=== PATIENT | male | born 1960 | race Caucasian/White ===

== ENCOUNTER 2017-09-23 13:16 | Emergency (ER) | payer MEDICARE ==
[2017-09-23 14:16] VITALS: BP 123/77
--- NOTE | 2017-09-23 15:32 | UC ---
Respiratory Complaint HPI - HPI Summary HPI Summary: 57 MALE WITH NASAL CONGESTION AND SINUS PAIN X 1 WEEK HE HAS COPD AND REQUIRES HOME O2 NO F/C NO INCREASE IN HIS BASE LINE SOB NO REVELES OR MYALGIAS - History of Current Complaint Chief Complaint: UCGeneralIllness Stated Complaint: RESPIRATORY/SINUS Time Seen by Provider: 09/23/17 15:23 Hx Obtained From: Patient Timing: Constant Severity Initially: Mild Severity Currently: Moderate Pain Intensity: 4 Pain Scale Used: 0-10 Numeric Character: Cough: Nonproductive Aggravating Factors: Nothing Associated Signs And Symptoms: Positive: Wheezing - CHRONIC COMPLAINT, Nasal Congestion, Sinus Discomfort. Negative: Dyspnea, Fever, Chills, Pleuritic Chest Pain - Allergies/Home Medications Allergies/Adverse Reactions: Allergies Allergy/AdvReac Type Severity Reaction Status Date / Time Bacitracin [From Neosporin] Allergy Intermediate Rash Verified 09/23/17 14:16 Neomycin [From Neosporin] Allergy Intermediate Rash Verified 09/23/17 14:16 Polymyxin B [From Neosporin] Allergy Intermediate Rash Verified 09/23/17 14:16 Sulfa Antibiotics Allergy Intermediate Rash Verified 09/23/17 14:16 PMH/Surg Hx/FS Hx/Imm Hx Previously Healthy: Yes Respiratory History: COPD, Bronchitis - Surgical History Surgical History: Yes Surgery Procedure, Year, and Place: 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 , APPENDECTOMY - Social History Alcohol Use: Occasionally Substance Use Type: None Smoking Status (MU): Heavy Every Day Tobacco Smoker Type: Cigarettes Amount Used/How Often: 2 PPD Have You Smoked in the Last Year: Yes When Did the Patient Quit Smoking/Using Tobacco: 3 DAYS AGO - Immunization History Most Recent Influenza Vaccination: 1 week ago Review of Systems Constitutional: Negative Skin: Negative Eyes: Negative ENT: Nasal Discharge, Sinus Congestion, Sinus Pain/Tenderness Respiratory: Cough Cardiovascular: Negative Gastrointestinal: Negative Genitourinary: Negative Motor: Negative Neurovascular: Negative Musculoskeletal: Negative Neurological: Negative Psychological: Negative Is Patient Immunocompromised?: No All Other Systems Reviewed And Are Negative: Yes Physical Exam Triage Information Reviewed: Yes Appearance: Well-Appearing, No Pain Distress, Well-Nourished Vital Signs: Initial Vital Signs Temp 98.7 F 09/23/17 14:09 Pulse 104 09/23/17 14:09 Resp 18 09/23/17 14:09 BP 123/77 09/23/17 14:09 Pulse Ox 93 09/23/17 14:09 Vital Signs Reviewed: Yes Eyes: Positive: Conjunctiva Clear ENT: Positive: Hearing grossly normal, Nasal congestion, Nasal drainage, Sinus tenderness. Negative: Tonsillar swelling, Tonsillar exudate, Trismus, Muffled voice Neck: Positive: Supple, Nontender Respiratory: Positive: No respiratory distress, No accessory muscle use, Wheezing Cardiovascular: Positive: RRR, No Murmur Musculoskeletal: Positive: ROM Intact, No Edema Neurological: Positive: Alert Psychological Exam: Normal Skin Exam: Normal UC Diagnostic Evaluation - Laboratory O2 Sat by Pulse Oximetry: 93 - HIS BASELINE Respiratory Course/Dx - Differential Dx/Diagnosis Provider Diagnoses: ACUTE SINUSITIS Discharge - Discharge Plan Condition: Stable Disposition: HOME Prescriptions: Amoxicillin PO (*) [Amoxicillin 875 MG (*)] 875 mg PO BID #20 tab Patient Education Materials: Sinusitis (ED) Referrals: Iggy Thakkar MD [Primary Care Provider] - 1 Week (IF NOT BETTER) Additional Instructions: USE YOUR FLONASE
== END 2017-09-23 15:40 | disposition home or self-care (01) ==
LOC: UCCORT 13:16
DX: J01.90 Acute sinusitis, unspecified (principal); J44.9 Chronic obstructive pulmonary disease, unspecified; Z99.81 Dependence on supplemental oxygen; Z88.3 Allergy status to other anti-infective agents; F17.210 Nicotine dependence, cigarettes, uncomplicated
CPT/HCPCS: 99212; G0463